=== PATIENT | male | born 1945 | race African-American/Black ===

== ENCOUNTER 2017-11-06 20:56 | Inpatient (IN) | payer OTHER ==
[~2017-11-06] VITALS: Ht 188 cm; Wt 102.1 kg
--- NOTE | ~2017-11-06 | HC ---
[facility] [place] [address] CONSULTATION Name: SUKHI ROBERT Room #: 219-P [facility] M.R.#: [id number] Admission: 11/06/17 Attend Phys: David Barba MD Discharge: 11/09/17 Date of : 41 Report #: [id number] THIS REPORT FOR: //name// CC: JED physician/PCP Per Barba DATE OF SERVICE: 11/07/2017 HISTORY OF PRESENT ILLNESS: The patient is a 71-year-old single black male who I was asked to see in the hospital today after he had an episode of ventricular tachycardia. 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 He stays fairly active. He has a history of a nonischemic cardiomyopathy. Apparently, heart catheterization in the past did show evidence of small vessel disease, but he never required stenting or bypass surgery. His last nuclear stress test in 2014 showed no ischemia. Echocardiogram in 2014 showed an ejection fraction of 30%. Dr. Tobar actually implanted a defibrillator for primary prevention of sudden in 2009. He has been followed in my device clinic since that time. I have actually not seen him since 09/2016. He states he has done well since that time with no significant shortness of breath, chest pain, palpitations, or syncope. He notes that 3 days ago, he felt diaphoretic, weak, he was incontinent. He called the ambulance and was taken to [facility]. He was evaluated there and told that he had a stroke. He was told there was a blockage in one of his cerebral arteries, but it is too small to operate. He was placed on Plavix. He was just discharged yesterday afternoon. Apparently during his hospitalization, he was seen by both Neurology and Cardiology. The only new medication was Plavix. He then was driving home when his defibrillator went off. He felt lightheaded. He called the ambulance. Apparently, the ambulance took him to [facility]. When he was told that I was not on staff there, he was transferred last night from [facility] to [facility]. He was started on IV amiodarone and Cardiology consultation was requested. He denied any recent fever. PAST MEDICAL HISTORY: Significant for knee surgery. He does have a history of hypertension. MEDICATIONS: Consists of aspirin, atorvastatin, nifedipine, potassium, losartan, and metoprolol. ALLERGIES: He has no known drug allergies. FAMILY HISTORY: His mother had heart disease. SOCIAL HISTORY: He is single, has smoked for years. No alcohol abuse. [facility] [address] [place] [address] CONSULTATION Name: SUKHI ROBERT Room #: 219-P [facility] M.R.#: [id number] Admission: 11/06/17 Attend Phys: David Barba MD Discharge: 11/09/17 Date of : 41 Report #: [id number] REVIEW OF SYSTEMS: He has had no previous history of stroke. He has no history of asthma, liver disease, or peptic ulcer disease. He was told at [facility] he was having frequent PVCs. He has had a kidney stone before. No cancer. He does have a chronic rash. He apparently saw a paint prepper in the past and was given a steroid cream. PHYSICAL EXAMINATION: GENERAL: Reveals an elderly male, lying in bed. He appeared in no distress. VITAL SIGNS: He had a blood pressure of 150/80, pulse 70, he is afebrile. HEENT: He was anicteric. Conjunctivae are pink. Mucous members are moist. NECK: Veins nondistended. No carotid bruits. CHEST: Clear to auscultation. HEART: Regular rate and rhythm without murmur. ABDOMEN: Soft, nontender. EXTREMITIES: Had no edema. Dorsalis pedis pulse cannot be palpated. SKIN: Cool and dry. NEUROLOGIC: Nonfocal. On the monitor, he appears to be in a sinus rhythm. IMPRESSION AND RECOMMENDATIONS: 1. Discharge with defibrillator. Recommend EP consult. I would recommend starting the amiodarone. 2. Hypertension. The patient is on a beta christina, ARB and calcium christina. 3. Cardiomyopathy. I would consider adding Aldactone. The patient is on a beta christina and ARB. He previously was on carvedilol, which was discontinued because of his rash. 4. Coronary artery disease. No significant angina. I would continue aspirin a day. 5. Previous implantation of defibrillator. Defibrillator is at [facility]. We will consider replacement. 6. Ventricular tachycardia. Continue amiodarone. 7. Rash. The patient has been given a steroid cream. <ELECTRONICALLY SIGNED> By: Julio Hernandez MD, [facility] 11/13/17 1718 0918 1219 Julio Hernandez MD, [facility] /nt
--- NOTE | ~2017-11-06 | EKG ---
[address] [place] [address] ELECTROCARDIOGRAM REPORT Name: SUKHI ROBERT Room #: 219-P ADM IN M.R.#: [id number] Admission: 11/06/17 Attend Phys: David Barba MD Discharge: Date of : 41 Report #: [id number] THIS REPORT FOR: //name// [facility] Test Date: 2017-11-08 Test Time: 08:02:48 Pat Name: SUKHI ROBERT Department: Room: 219 P Gender: M Fitness Management Director: ALESSANDRO : 1945 Requested By: Julio Hernandez Order Number: [id number] MD: Aldair Rodriguez Measurements Intervals [place] Rate: 63 P: -11 [place]: 168 QRS: -14 QRSD: 121 T: -89 QT: 436 QTc: 447 Interpretive Statements Sinus rhythm LVH with secondary repolarization abnormality No previous ECG available for comparison Electronically Signed On 11-08-2017 8:23:53 CDT by Aldair Rodriguez [email or web address] <ELECTRONICALLY SIGNED> By: Aldair Rodriguez MD, [facility] 11/08/17 0823 1 1 Aldair Rodriguez MD, FACC /EPI
--- NOTE | ~2017-11-06 | H ---
[facility] [place] [address] HISTORY AND PHYSICAL Name: CELINEISSACSUKHI B Room #: 219-P ADM IN M.R.#: [id number] Admission: 11/06/17 Attend Phys: David Barba MD Discharge: Date of : 41 Report #: [id number] THIS REPORT FOR: //name// CC: Tashi ADKINS physician/PCP DATE OF SERVICE: 11/06/2017 ATTENDING PHYSICIAN: Dr. Osman. PRIMARY CARE PHYSICIAN: Unknown. CHIEF COMPLAINT: AICD firing. HISTORY OF PRESENT ILLNESS: The patient is a 71-year-old -[place] male with a history of nonischemic cardiomyopathy. He has an EF of 15% and has a defibrillator in place. Recently, he has been having some dizzy spells. He was actually just admitted at [facility] for an episode of aphasia and right-sided weakness with his dizziness. He was admitted for TIA workup. The records were reviewed and showed that he had an echocardiogram done, which showed an EF of 15% to 20% with severe diffuse hypokinesis and grade 3 diastolic dysfunction. He also had a CTA of the head and neck, which did show occlusion of the left vertebral artery and 100% occlusion of the left vertebral artery and an 80% occlusion of the right vertebral artery. His pacer was interrogated during that admission. 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 At that time, he had been taking low-dose aspirin daily and after this TIA episode, it was recommended that he start taking Plavix up until 11/10/2017 and then he was to start taking Eliquis. He was unable to have an MRI because of his defibrillator. He was actually driving home from [place] earlier this afternoon when he felt suddenly lightheaded and his defibrillator shocked him. He says this was the first time that it ever happened. He was able to rack puller. He did not pass out. He ended up going home and his brought him into the [facility]'s ER. Upon their evaluation, he had another defibrillator interrogation done, which showed that prior to his shock, he had had 44 seconds of ventricular fibrillation. There were also three other episodes of nonsustained V-tach earlier in the day. He was again told that his pacer battery would need exchange within the next 30 days. His primary grades 1 thru [address] Figueroa and he was called and it was recommended that he start on amiodarone drip after an amiodarone bolus and be transferred to [facility] where he can be seen by his regular grades 1 thru 6 visiting teacher and have a defibrillator generator exchange. He arrived tonight in stable condition. He denies any residual chest pain after his defibrillator fired. His vitals have been stable. He continues on the amiodarone drip. He denies any other new symptoms. PAST MEDICAL HISTORY: Hypertension, nonischemic cardiomyopathy with an EF of [facility] [address] [place] [address] HISTORY AND PHYSICAL Name: SUKHI ROBERT Room #: 219-P ADM IN M.R.#: [id number] Admission: 11/06/17 Attend Phys: David Barba MD Discharge: Date of : 41 Report #: [id number] 15%, grade 3 diastolic dysfunction, hyperlipidemia, and atrial fibrillation. PAST SURGICAL HISTORY: AICD placement, left knee repair. ALLERGIES: SHELLFISH only. HOME MEDICATIONS: Plavix 75 mg p.o. daily, Lipitor 80 mg daily, carvedilol 25 mg p.o. b.i.d., nifedipine 60 mg daily, potassium 20 mEq daily, hydrochlorothiazide 25 mg daily. SOCIAL HISTORY: The patient denies any history of tobacco, alcohol or drug use. He lives at home with his . He ambulates independently. FAMILY HISTORY: All his siblings have had hypertension. His mother at the age of 97. His father of liver problems. REVIEW OF SYSTEMS: A 12-point review of systems was reviewed with the patient and is otherwise negative unless stated in HPI. PHYSICAL EXAMINATION: GENERAL: The patient is an alert male in no acute distress. VITAL SIGNS: Temperature 36.7, heart rate 75, respirations 18, blood pressure 147/97. Oxygen is 99% on room air. HEENT: PERRLA. Sclerae are nonicteric. Oral mucosa is pink and moist. NECK: Supple, no JVD noted. CARDIAC: Normal S1, S2. No murmurs, rubs or gallops. RESPIRATORY: Breath sounds are clear bilaterally. No wheezing or rhonchi. Breathing is nonlabored. ABDOMEN: Soft, nontender, nondistended with positive bowel sounds. VASCULAR: No edema noted. Pedal pulses are 2+. NEUROLOGIC: The patient is alert. He is oriented times 3. Speech is clear. He is moving all extremities equally. There are no focal deficits noted. SKIN: Intact. No rashes or lesions. LABORATORY DATA AND DIAGNOSTICS: Blood work from [facility] showed WBC of 6.6, hemoglobin 12.9, platelets 149. Sodium 139, potassium 3.7, BUN 14, creatinine 0.9, glucose 107. LFTs were within normal limits. INR 1.2, troponin 0.01. Magnesium 2.0. EKG showed an A-paced rhythm with frequent PVCs. ASSESSMENT AND PLAN: 1. Ventricular fibrillation with automatic implantable cardioverter defibrillator firing. The patient remains on amiodarone drip per cardiology recommendations. We will consult cardiology as his defibrillator does show that he is due for a generator exchange. We will continue to monitor on telemetry. [facility] [address] [place] [address] HISTORY AND PHYSICAL Name: SUKHI ROBERT Room #: 219-P [facility] IN ..#: [id number] Admission: 11/06/17 Attend Phys: David Barba MD Discharge: Date of : 41 Report #: [id number] 2. Recent transient ischemic attack with known vertebral artery stenosis. The patient was supposed to continue Plavix for the next few days and then start Eliquis on 11/10. We will defer further anticoagulation recommendations to cardiology, but continue Plavix for now. 3. Chronic systolic and diastolic heart failure with an ejection fraction of 15%, no signs of acute fluid overload. We will continue home medications consisting of losartan and carvedilol, as well as hydrochlorothiazide and continue anticoagulation per cardiology recommendations. 4. Hyperlipidemia. Continue statin therapy. 5. Deep venous thrombosis prophylaxis. Place sequential compression devices. We will continue to follow the patient closely throughout the hospitalization and make changes based on clinical status. <ELECTRONICALLY SIGNED> By: AARON Sparks 11/07/17 1708 0539 2 AARON Sparks /nt
[~2017-11-06 20:56] MED LIST: ASPIR 8181 MG PO; ATORVASTATIN CA40 MG PO; COREG25 MG PO; DIOVAN 80 MG TA80 M1 PO; HYDROCHLOROTHIA25 M2 PO; K-DUR 20 MEQ T20 MEQ PO; LISINOPRIL20 MG PO; MOTION RELIEF25 MG PO; NIFEDICAL XL60 MG PO; PLAVIX 75 MG TA75 M1 PO
[2017-11-06 21:42] VITALS: BP 147/97
[2017-11-06] MEDS ORDERED: ELIQUIS5 MG PO (22:32)
[2017-11-06] MEDS ORDERED: PROCARDIA XL30 MG PO (22:32)
[2017-11-06] MEDS ORDERED: PLAVIX 75 MG TA75 M1 PO (22:33)
[2017-11-07 00:22] VITALS: BP 163/91
[2017-11-07 04:46] VITALS: BP 151/85
[2017-11-07 07:25] VITALS: BP 159/99
[2017-11-07 11:31] VITALS: BP 133/75
[2017-11-07 16:01] VITALS: BP 123/71
[2017-11-07 19:35] VITALS: BP 115/61
[2017-11-08 04:23] LABS: CALCIUM 8.2 mg/dL (8.5-10.1); POTASSIUM 3.7 mmol/L (3.5-5.1)
[2017-11-08 04:25] VITALS: BP 121/73
[2017-11-08 04:43] LABS: ABSOLUTE NEUTROPHILS 4.5 thou/uL (1.4-8.2); BASOPHILS 0.5 % (0.0-2.0); HEMATOCRIT 35.6 % (42.0-52.0); LYMPHOCYTES 28.5 % (24.0-44.0); MCH 32.5 pg (26.0-34.0); MCHC 33.7 g/dL (28.0-37.0); MCV 96.5 fL (80.0-100.0); MONOCYTES 7.9 % (1.0-8.0); PLATELET COUNT 119 thou/uL (150-400); POLYS 60.1 % (36.0-66.0); RBC 3.69 mil/uL (4.50-6.00); WBC 7.5 thou/uL (4.0-11.0)
[2017-11-08 05:49] LABS: LARGE PLATELETS RARE
[2017-11-08 08:41] VITALS: BP 117/73
[2017-11-08 12:24] VITALS: BP 92/57
[2017-11-08 16:50] VITALS: BP 120/75
[2017-11-08 20:30] VITALS: BP 112/67
[2017-11-09 04:45] VITALS: BP 119/65
[2017-11-09 05:01] LABS: CREATININE 1.1 mg/dL (0.7-1.3); POTASSIUM 3.7 mmol/L (3.5-5.1)
[2017-11-09 06:06] LABS: ABSOLUTE NEUTROPHILS 3.6 thou/uL (1.4-8.2); BASOPHILS 0.9 % (0.0-2.0); EOSINOPHILS 4.4 % (0.0-3.0); HEMATOCRIT 34.4 % (42.0-52.0); HEMOGLOBIN 11.6 gm/dL (14.0-18.0); LYMPHOCYTES 33.2 % (24.0-44.0); MCH 32.5 pg (26.0-34.0); MCHC 33.7 g/dL (28.0-37.0); MCV 96.6 fL (80.0-100.0); MONOCYTES 8.7 % (1.0-8.0); PLATELET COUNT 111 thou/uL (150-400); POLYS 52.8 % (36.0-66.0); RBC 3.56 mil/uL (4.50-6.00); RDW 14.1 % (10.5-14.5); WBC 6.8 thou/uL (4.0-11.0)
[2017-11-09 07:23] VITALS: BP 123/74
[2017-11-09] MEDS ORDERED: PACERONE 200 M200 M1 PO (12:14)
[2017-11-09] MEDS ORDERED: SPIRONOLACTONE25 M1 PO (12:14)
[2017-11-09] MEDS ORDERED: HYZAAR 100-251 EACH PO ×2 (12:36→12:57)
[2017-11-09 12:45] VITALS: BP 126/73
[2017-11-09] MEDS ORDERED: COREG25 MG PO (12:57)
[2017-11-09 13:19] VITALS: BP 126/73
== END 2017-11-09 14:08 | disposition home or self-care (01) | DRG 309 ==
LOC: 2N 20:56 → ENTRNSPT 11-09 14:01 → EDTRNSPTSTS 11-09 14:03 → 2N 11-09 14:08
PROVIDERS: Hospitalist; Internal Medicine Cardiovascular Disease
DX: I47.1 Supraventricular tachycardia (principal); I50.42 Chronic combined systolic (congestive) and diastolic (congestive) heart failure; I42.8 Other cardiomyopathies; I49.01 Ventricular fibrillation; Z96.651 Presence of right artificial knee joint; I11.0 Hypertensive heart disease with heart failure; I65.09 Occlusion and stenosis of unspecified vertebral artery; I25.10 Atherosclerotic heart disease of native coronary artery without angina pectoris; E78.5 Hyperlipidemia, unspecified; I48.91 Unspecified atrial fibrillation; Z95.810 Presence of automatic (implantable) cardiac defibrillator; Z91.013 Allergy to seafood; Z82.49 Family history of ischemic heart disease and other diseases of the circulatory system; Z86.73 Personal history of transient ischemic attack (TIA), and cerebral infarction without residual deficits; Z79.899 Other long term (current) drug therapy
CPT/HCPCS: 10081

== ENCOUNTER 2017-11-28 18:48 | Emergency (ER) | payer OTHER ==
[~2017-11-28] VITALS: Ht 188 cm; Wt 90.3 kg
[~2017-11-28 18:48] MED LIST changes: +ELIQUIS5 MG PO; +HYZAAR 100-251 EACH PO; +PACERONE 200 M200 M1 PO; +PROCARDIA XL30 MG PO; +SPIRONOLACTONE25 M1 PO
[2017-11-28] MEDS ORDERED: LIORESAL 10 MG10 MG PO (20:15)
[2017-11-28] MEDS ORDERED: TRAMADOL 50 MG50 MG PO (20:15)
== END 2017-11-28 20:24 | disposition home or self-care (01) ==
LOC: ER 18:48
DX: S16.1XXA Strain of muscle, fascia and tendon at neck level, initial encounter (principal); S39.012A Strain of muscle, fascia and tendon of lower back, initial encounter; I10 Essential (primary) hypertension; Z91.013 Allergy to seafood; Z96.651 Presence of right artificial knee joint; Z86.73 Personal history of transient ischemic attack (TIA), and cerebral infarction without residual deficits; V43.52XA Car driver injured in collision with other type car in traffic accident, initial encounter; Y93.89 Activity, other specified; Y92.89 Other specified places as the place of occurrence of the external cause; Y99.8 Other external cause status